=== PATIENT | female | born 1935 | race Caucasian/White ===

== ENCOUNTER 2017-09-23 00:21 | Emergency (ER) | payer MEDICARE ==
--- OUTSIDE RECORDS SUMMARY | 2017-09-23 00:40 | XMS REPORT ---
:1935 External Reference #:[id number] [facility] [employer] Address [address] [place] [address] Phone [phone] Care Team Providers Name Role Phone Juanita Mcduffie M.D. Primary Care Physician Unavailable Payers Type Date Identification Numbers Payment Provider Subscriber Commercial Policy Number: [id number] [employer] Miko Moore PayID: [id number] [address] [place] [address] Problems Date Description Provider Status Onset: Weakness of left arm Active Onset: Heart block Active Note: left atrial Onset: Hypothyroidism Active Onset: Pain Active Onset: Insomnia Active Onset: Decreased hearing Active Onset: 09/22/2017 Nuclear senile cataract Edison Rg M.D. Active Onset: 06/23/2017 Benign neoplasm of choroid Edison Rg M.D. Active Onset: 06/23/2017 Bilateral primary open angle glaucoma Edison Rg M.D. Active Onset: 06/16/2017 Retinal disorder Mabel Jung, Active O.D. Onset: 06/16/2017 Open angle with borderline findings, Mabel Jung, Active high risk, bilateral O.D. Onset: 06/16/2017 Combined form of senile cataract Mabel Jung, Active O.D. Onset: 06/16/2017 Tear film insufficiency Mabel Jung, Active O.D. Onset: 06/16/2017 Angular blepharoconjunctivitis Mabel Jung, Active O.D. Onset: 06/16/2017 Punctate keratitis Mabel Jung, Active O.D. Family History Date Family Member(s) Problem(s) Comments General No Current Problems Father No Current Problems Mother No Current Problems Social History Type Date Description Comments Marital Status Legal Status: Occupation Homemaker Work Status Unemployed ETOH Use Rarely consumes wine Smoking Patient has never smoked Recreational Drug Use Denies Drug Use Daily Caffeine Consumes on average 1 cup of regular coffee per day Allergies, Adverse Reactions, Alerts Date Description Reaction Status Severity Comments 06/16/2017 Bandaids active 06/16/2017 Ciprofloxacin active 06/16/2017 Sulfa Antibiotics active 06/16/2017 Tetanus active Medications Medication Date Status Form Strength Qnty SIG Indications Ordering Provider Artificial 09/21/ Active Solution 0.1-0.3% as needed Edison Tears Ovidio Rg M.D. Latanoprost 06/23/ Active Solution 0.005% 7.5uni 1 drop both H40.4065 Edison Nolan ts eyes every blocki, night M.DCelso Vitamin D / Active Capsules 1 tab po Unknown (Cholecalcifer 0000 daily ol) Gabapentin / Active Capsules 300mg 1800 mg Unknown 0000 daily Lisinopril 00/ Active Tablets 2.5mg 1 tab po Unknown 0000 daily Metoprolol / Active Tablets ER 25mg 1 tab po Unknown Succinate ER 0000 24HR daily Synthroid 00/ Active Tablets 25mcg alternates Unknown 0000 between 50mcg/ 25 mcg Hydrocodone / Active Tablets 5-325mg tid Unknown Bitartrate/Diogenes 0000 taminophen Quetiapine / Active Tablets 100mg at hs Unknown Fumarate 0000 Erythromycin 06/16/ Hx Ointment 5mg/GM 1Tube apply thin H16.143 Mabel Ferrell 2018 - strip to all [place], 09/21/ four eyelid O.D. 2018 margins x every night for 2 weeks Results Description No Information Procedures Date CPT Code Description Status 06/23/2017 51043 Scanning Computerized Ophthalmic Diagnostic Imag Completed Posterior Seg On 06/23/2017 86195 Pachymetry Completed 06/16/2017 11197 New Patient Comprehensive Exam Completed Encounters Type Date Location Provider CPT E/M Dx Office Visit 06/23/2017 Velasquez Brizuela MD, Edison Rg, [address] H40.1303 11:15a erik Huizar H25.813 D31.32 Plan of Care 09/22/2017 - Edison Rg M.D.H40.1133 Primary open-angle glaucoma, bilateral, severe stageComments:Smoking can increase the risk of developing or worsening any eye related disease, as well as affect your overall health. If you are a smoker, we strongly recommend that you quit.If you are not a smoker, we strongly recommend that you do not start. Your glaucoma is stable at this time.Your eye pressure is within an acceptable range, and your testing does not show any further deterioration at this time. Please continue your treatment.Follow up:6 Month Follow Up DFE You can expect to have your eyes dilated at your next visit. If Dr. Rg orders any additional testing, it may require extra time. We recommend that you bring sunglasses, as dilation drops often make you light sensitive until they wear off. We always recommend you bring someone to drive you home if you are uncomfortable driving with your eyes dilated. If you have any questions before your next visit, feel free to call our office at .H25.13 Age-related nuclear cataract, bilateralComments:You have been diagnosed with cataracts. If you are happy with your vision as it is now, then we willsee you at your next scheduled appointment. If you feel like your vision is getting worse before your scheduled appointment, please call Amber or Rhiannon at [phone].H04.123 Dry eye syndrome of bilateral lacrimal glandsComments:Both of your eyes appear to be dry. Use artificial tears as directed. You can use the tears more often if you are reading a book or are on the computer, as we tend to blink less, making our eyes dry out more.[facility] offers a few items in our optical department to help alleviate dry eye symptoms. TRY TO USE THE ARTIFICAL TEARS 2-3 TIMES A DAY EVERY DAY TO BOTH EYES.D31.32 Benign neoplasm of left choroidComments:You have a nevus in your left eye. This is similar to a mole on your skin. Typically this will not change, but I will monitor it.
[2017-09-23] MEDS ORDERED: NS 0.9% 1000 ML* 1,000 ML IV ONE (01:38)
[2017-09-23 02:19] LABS: ABS Basophils 0.1 10^3/ul (0-0.2); ABS Eosinophils 0.1 10^3/ul (0-0.6); ABS Monocytes 0.8 10^3/ul (0-0.8); ABS Neutrophils 7.9 10^3/ul (1.5-7.7); ABS Nucleated RBC 0 10^3/ul; Eosinophil % 1.1 % (0-6); Hematocrit 39 % (35-47); Lymphocyte % 10.5 % (25-47); Mean Corpuscular HGB Conc 33 g/dl (31-36); Mean Corpuscular Hemoglobin 31 pg (27-31); Mean Corpuscular Volume 92 fL (80-97); Mean Platelet Volume 8.3 um3 (7.4-10.4); Nucleated Red Blood Cells % 0; Platelet Count 204 10^3/ul (150-450); Red Blood Count 4.24 10^6/ul (4.0-5.4); Red Cell Distribution Width 14 % (10.5-15); White Blood Count 9.8 10^3/ul (3.5-10.8)
[2017-09-23 02:21] LABS: EGFR Non-African American 51.6 (>60)
[2017-09-23] MEDS ORDERED: Diphenoxylat/Atrop 2.5-0.025M* 1 TAB PO ONE (02:32)
[2017-09-23 04:05] VITALS: BP 125/47
--- NOTE | 2017-09-23 04:13 | ED ---
Leonardo Alexander Nilda, scribed for Tevin Brady MD on 09/23/17 at 0245 . GI/ HPI - HPI Summary HPI Summary: This patient is an 82 year old F presenting to [facility] accompanied by with a chief complaint of constant increased urinary frequency (urge to urinate every 15-20 mins) and diarrhea for weeks. The patient rates the pain 0/10 in severity. Symptoms aggravated and alleviated by nothing. Patient denies dysuria , urinary retention, and abd pain. No PMHx DM. 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 - History of Current Complaint Chief Complaint: EDNauseaVomitDiarrh Time Seen by Provider: 09/23/17 01:15 Stated Complaint: GENERAL ILLNESS Hx Obtained From: Patient, Family/Director Experimental Medicine - Onset/Duration: Started Weeks Ago, Still Present Timing: Constant Pain Intensity: 0 Location of Pain: None Associated Signs and Symptoms: Positive: Other: - urinary frequency, diarrhea; negative dysuria, urinary retention, abd pain Aggravating Factor(s): Nothing Alleviating Factor(s): Nothing - Allergy/Home Medications Allergies/Adverse Reactions: Allergies Allergy/AdvReac Type Severity Reaction Status Date / Time codeine Allergy Unknown Verified 09/23/17 00:28 Reaction Details Tetanus Vaccines and Toxoid Allergy Unknown Verified 09/23/17 00:28 Reaction Details azithromycin [From Zithromax] AdvReac Nausea Verified 09/23/17 00:28 ciprofloxacin AdvReac Nausea Verified 09/23/17 00:28 PMH/Surg Hx/FS Hx/Imm Hx Endocrine/Hematology History: Reports: Hx Thyroid Disease Denies: Hx Diabetes Cardiovascular History: Reports: Other Cardiovascular Problems/Disorders - recent visit with cardiology re: left ventricle Denies: Hx Congestive Heart Failure, Hx Hypertension, Hx Pacemaker/ICD Respiratory History: Reports: Hx Chronic Bronchitis Denies: Hx Asthma History: Denies: Hx Renal Disease Musculoskeletal History: Reports: Hx Arthritis, Hx Osteoporosis Comment Only: Hx Rheumatoid Arthritis - OSTEOARTHRITIS, Other Musculoskeletal History - left wrist contracture Sensory History: Reports: Hx Deafness - [place], Hx Hearing Problem Denies: Hx Hearing Aid Neurological History: Reports: Hx Dementia - Lewy Body, Other Neuro Impairments/ Disorders - tardive dyskinesia Psychiatric History: Reports: Hx Bipolar Disorder, Hx Suicide Attempt Denies: Hx Panic Disorder - Surgical History Surgery Procedure, Year, and Place: HYSTERECTOMY 1983; BILATERAL ARTHROSCOPIC KNEES 2003, left hand 3RD AND 4TH fingers straightened and splinted and frozen joints operated on in 2016. - Immunization History Date of Tetanus Vaccine: unknown Infectious Disease History: No Infectious Disease History: Reports: Hx Shingles - 2 years ago Denies: Traveled Outside the [place] in Last 30 Days - Social History Alcohol Use: Weekly Alcohol Amount: 2 drinks per week Hx Substance Use: No Substance Use Type: Reports: None Hx Tobacco Use: No Smoking Status (MU): Never Smoked Tobacco Review of Systems Positive: Diarrhea. Negative: Abdominal Pain Positive: frequency, other - negative urinary retention. Negative: dysuria All Other Systems Reviewed And Are Negative: Yes Physical Exam - Summary Physical Exam Summary: VITAL SIGNS: Reviewed. GENERAL: Patient is a well-developed and nourished female who is lying comfortable in the stretcher. Patient is not in any acute respiratory distress. HEAD AND FACE: No signs of trauma. No ecchymosis, hematomas or skull depressions. No sinus tenderness. EYES: PERRLA, EOMI x 2, No injected conjunctiva, no nystagmus. EARS: Hearing grossly intact. Ear canals and tympanic membranes are within normal limits. MOUTH: Oropharynx within normal limits. NECK: Supple, trachea is midline, no adenopathy, no JVD, no carotid bruit, no c- spine tenderness, neck with full ROM. CHEST: Symmetric, no tenderness at palpation LUNGS: Clear to auscultation bilaterally. No wheezing or crackles. CVS: Regular rate and rhythm, S1 and S2 present, no murmurs or gallops appreciated. ABDOMEN: Soft, non-tender. No signs of distention. No rebound no guarding, and no masses palpated. Bowel sounds are hyperactive. EXTREMITIES: FROM in all major joints, no edema, no cyanosis or clubbing except for paralysis of the left hand from wrist down (old). NEURO: Alert and oriented x 3. No acute neurological deficits. Speech is normal and follows commands. SKIN: Dry and warm Triage Information Reviewed: Yes Vital Signs On Initial Exam: Initial Vitals Temp Pulse Resp BP Pulse Ox 98.7 F 70 16 103/45 96 09/23/17 00:25 09/23/17 00:25 09/23/17 00:25 09/23/17 00:25 09/23/17 00:25 Vital Signs Reviewed: Yes Diagnostics - Vital Signs Vital Signs Temp Pulse Resp BP Pulse Ox 09/23/17 00:25 98.7 F 70 16 103/45 96 - Laboratory Result Diagrams: 09/23/17 01:55 09/23/17 01:55 Lab Statement: Any lab studies that have been ordered have been reviewed, and results considered in the medical decision making process. Re-Evaluation - Re-Evaluation First Eval Re-Evaluation Time: 03:49 Comment: Reviewed labs and D/C plan with pt. Pt agreeable to D/C. GIGU Course/Dx - Course Assessment/Plan: Pt is 82 y/o having diarrhea. Stool studies are negative. Pending culture. Pt has nml electrolytes. Pt will be D/C home with instructions to take Lomotil as needed for diarrhea and f/u with PCP. - Diagnoses Provider Diagnoses: Diarrhea Discharge - Sign-Out/Discharge Documenting (check all that apply): Discharge - home - Discharge Plan Condition: Stable Disposition: HOME Prescriptions: Diphenoxylat/Atrop 2.5-0.025M* [Lomotil TAB*] 1 tab PO QID PRN #14 tab MDD 4 PRN Reason: Diarrhea Patient Education Materials: Acute Diarrhea (ED) Referrals: Juanita Mcduffie MD [Primary Care Provider] - 2 Days Additional Instructions: RETURN TO THE EMERGENCY DEPARTMENT FOR CHANGING OR WORSENING SYMPTOMS. The documentation as recorded by the Leonardo roberts Nilda accurately reflects the service I personally performed and the decisions made by me, Tevin Brady MD.
== END 2017-09-23 04:04 | disposition home or self-care (01) ==
LOC: ED 00:21
DX: R19.7 Diarrhea, unspecified (principal); H91.90 Unspecified hearing loss, unspecified ear; G31.83 Neurocognitive disorder with Lewy bodies; F02.80 Dementia in other diseases classified elsewhere, unspecified severity, without behavioral disturbance, psychotic disturbance, mood disturbance, and anxiety; F31.9 Bipolar disorder, unspecified
CPT/HCPCS: 36415; 80053; 82272; 83630; 83690; 83735; 85025; 86140; 87045; 87046; 87077; 87493; 87899; 96360; 99282; A9270-GY

== ENCOUNTER 2022-09-04 07:08 | Observation (INO) ==
[2022-09-04] MEDS ORDERED: Famotidine IV 10 MG/ML 2 ml VIAL (20 mg) IV SLOW PU ONE (07:25)
[2022-09-04] MEDS ORDERED: NS 0.9% 1000 ml BAG 1,000 ML IV ONE ×2 (07:25→09:34)
[2022-09-04 08:17] LABS: ABS Lymphocytes 0.6 10^3/ul (1.0-4.8); ABS Monocytes 0.2 10^3/ul (0-0.8); ABS Neutrophils 6.4 10^3/ul (1.5-7.7); Eosinophil % 0.4 %; Hematocrit 37 % (35-47); Hemoglobin 12.2 g/dL (12.0-16.0); Lymphocyte % 8.3 %; Mean Corpuscular HGB Conc 33 g/dL (31-36); Mean Corpuscular Hemoglobin 31 pg (27-31); Mean Corpuscular Volume 94 fL (80-97); Mean Platelet Volume 8.4 fL (7.4-10.4); Platelet Count 175 10^3/uL (150-450); Red Cell Distribution Width 14 % (10-15); White Blood Count 7.2 10^3/uL (3.5-10.8)
[2022-09-04 08:48] LABS: ALT 12 U/L (7-52); Albumin 3.4 g/dL (3.2-5.2); Albumin/Globulin Ratio 1.4 (1-3); Alkaline Phosphatase 69 U/L (35-149); Blood Urea Nitrogen 19 mg/dL (6-24); CO2 Carbon Dioxide 23 mmol/L (22-32); Chloride 108 mmol/L (101-111); Globulin 2.5 g/dL (2-4); Glucose 112 mg/dL (70-100); Lipase 593 U/L (11.0-82.0); Magnesium 1.8 mg/dL (1.9-2.7); Sodium 138 mmol/L (135-145); Total Protein 5.9 g/dL (6.4-8.9); eGFR CKD-EPI 72.2 (>60)
[2022-09-04 08:56] LABS: Anion Gap 7 mmol/L (2-11)
[2022-09-04 09:40] LABS: Urine Appearance Clear; Urine Bilirubin Negative (Negative); Urine Blood Negative (Negative); Urine Color Yellow; Urine Glucose Negative (Negative); Urine Ketones Negative (Negative); Urine Nitrite Negative (Negative); Urine Protein Negative (Negative); Urine Specific Gravity 1.014 (1.002-1.030); Urine Urobilinogen Negative (Negative)
[2022-09-04] MEDS ORDERED: Iohexol 300 (CONTRAST) 10 ML SDV IV ONE (10:24)
[2022-09-04 12:40] LABS: Phosphorus 2.6 mg/dL (2.5-5.0); Potassium Redraw 4.4 mmol/L (3.5-5.0)
[2022-09-04] MEDS ORDERED: Ondansetron 4 mg VIAL 2 MG/ML 2 ml VIAL IV PRN (14:24)
[2022-09-04] MEDS ORDERED: Enoxaparin 40 MG/0.4 ML SYR SUBCUT SCH (15:00)
[2022-09-04] MEDS: D5W 1/2 NS 1000 ml BAG 1,000 ML IV SCH (16:36)
[2022-09-04] MEDS: Polyethylene Glycol 3350 17 GM PACKET PO SCH ×2 (16:37→21:09)
[2022-09-04] MEDS ORDERED: HYDROcodone/ACETAMIN 5/325 mg TAB PO SCH (21:00)
[2022-09-05] MEDS: D5W 1/2 NS 1000 ml BAG 1,000 ML IV SCH (05:48)
[2022-09-05] MEDS: Polyethylene Glycol 3350 17 GM PACKET PO SCH (08:53)
[2022-09-05 10:27] VITALS: BP 91/53
== END 2022-09-05 14:00 | disposition home or self-care (01) ==
LOC: ED 07:08 → EDHOLD 07:08 → MED 18:48
PROVIDERS: ADMIT Student in an Organized Health Care Education/Training Program; ATTEND Student in an Organized Health Care Education/Training Program